=== PATIENT | male | born 1950 | race Caucasian/White ===

== ENCOUNTER → 2019-06-25 09:53 | Outpatient (CLI) | payer OTHER, SELFPAY ==
--- NOTE | 2019-06-25 10:00 | XR_ITS ---
PROCEDURE: XR KNEE LT 3V CLINICAL INDICATION: ARTHRITIS Pain, fall COMPARISON: No exams were available for comparison FINDINGS: No fracture or dislocation. No lytic or blastic change. There is normal mineralization. Status post total knee arthroplasty with good alignment of the prosthesis. Calcification is present along the lateral joint space. There also a small area of calcification along the medial joint space anteriorly.. Please correlate with old films to determine if these are new or old. There are no old images made available at this institution Other findings:None. IMPRESSION: Status post total knee arthroplasty with good alignment with periarticular calcification nonspecific. Loose bodies are considered. Dictated by: Ronni Hammond MD 06/25/2019 12:27 Electronically signed by Ronni Hammond MD in [place] 06/25/2019 12:27
--- NOTE | 2019-06-25 10:00 | XR_ITS ---
PROCEDURE: XR HIP LT 2-3V W/PELVIS CLINICAL INDICATION: ARTHRITIS Fall with injury and pain COMPARISON: No exams were available for comparison FINDINGS: No fracture or dislocation. There are mild osteoarthritic changes. No lytic or blastic change. IMPRESSION: Mild osteoarthritis otherwise negative Dictated by: Ronni Hammond MD 06/25/2019 12:23 Electronically signed by Ronni Hammond MD in [facility] 06/25/2019 12:23
--- NOTE | 2019-06-25 10:00 | XR_ITS ---
PROCEDURE: XR HIP RT 2-3V W/PELVIS CLINICAL INDICATION: ARTHRITIS Right hip pain COMPARISON: No exams were available for comparison FINDINGS: Mild osteoarthritic changes are present with some decrease in the joint space superiorly with small osteophytes. No fracture or dislocation. No lytic or blastic change. IMPRESSION: Mild osteoarthritis of the right hip Dictated by: Ronni Hammond MD 06/25/2019 12:21 Electronically signed by Ronni Hammond MD in [place] 06/25/2019 12:21
--- NOTE | 2019-06-25 10:00 | XR_ITS ---
PROCEDURE: XR KNEE RT 3V CLINICAL INDICATION: ARTHRITIS Pain, fall with injury and COMPARISON: No exams were available for comparison FINDINGS: There has been a prior total knee arthroplasty with good alignment of the prosthesis. There is some minimal periarticular calcification laterally and posteriorly. No acute fracture or dislocation. Other findings:None. IMPRESSION: Prior total knee arthroplasty with good alignment and no evidence of acute fracture Nonspecific periarticular calcification. Loose bodies would be a consideration. Please correlate with preoperative exam which is not available at this institution for comparison Dictated by: Ronni Hammond MD 06/25/2019 12:25 Electronically signed by Ronni Hammond MD in [facility] 06/25/2019 12:25
--- NOTE | 2019-06-25 10:00 | XR_ITS ---
PROCEDURE: XR LUMBAR SPINE 2-3V CLINICAL INDICATION: ARTHRITIS Low back pain, fall with injury and pain COMPARISON: No exams were available for comparison FINDINGS: There is normal alignment. No fracture or dislocation. Mild degenerative disc disease and facet arthritic change is present at L4-5 and L5-S1 IMPRESSION: Degenerative changes, no acute finding Dictated by: Ronni Hammond MD 06/25/2019 12:22 Electronically signed by Ronni Hammond MD in [place] 06/25/2019 12:22
== END ==
PROVIDERS: Visit Provider Orthopaedic Surgery
DX: M13.80 Other specified arthritis, unspecified site (principal)
CPT/HCPCS: 72100; 73502; 73562

== ENCOUNTER 2025-01-16 11:57 | Outpatient (CLI) | payer BC, SELFPAY ==
[2025-01-16 18:31] LABS: Basophils # 0.1 K/mm3 (0-0.2); Basophils % 0.6 % (0.1-2.0); Eosinophils # 0.3 Kmm3 (0.0-0.4); Eosinophils % 3.2 % (0.1-12.0); Hematocrit 44.4 % (42.0-52.0); Hemoglobin 14.7 g/dL (14.1-18.0); Immature Granulocytes # 0.04 10^3uL; Immature Granulocytes % 0.5 %; Lymphocytes # 2.7 K/mm3 (0.7-4.5); Lymphocytes % 35.1 % (10-50); Mean Corpuscular HGB Conc 33.1 g/dL (31.8-35.4); Mean Corpuscular Volume 93.7 fl (80-94); Mean Platelet Volume 10.5 fl (7.4-10.4); Monocytes # 0.5 K/mm3 (0.1-1.0); Monocytes % 6.3 % (1.7-9.3); Neutrophils # 4.2 K/mm3 (1.8-7.8); Neutrophils % 54.3 % (37.0-80.0); Nucleated Red Blood Cells # 0 10^3/uL; Nucleated Red Blood Cells % 0 %; Platelet Count 348 K/mm3 (142-424); Red Blood Count 4.74 M/mm3 (4.60-6.20); Red Cell Distribution Width 14.2 % (11.5-17.5); White Blood Count 7.8 K/mm3 (4.8-10.8)
[2025-01-16 20:16] LABS: Prostate Specific Ag Screen 1.1 ng/ml (0.0-4.0)
--- OUTSIDE RECORDS SUMMARY | 2025-01-17 23:20 | XMS_ITS | Clinical Summary ---
Author Organization [facility] Address [address] [place] [address] Phone Care Team Providers Care Quality Control Projectionist Name Role Phone Douglas Wood MD [phone] Conditions or Problems Problem Name Problem Code Onset Date Status Entry Date Provider Comment Standard Description Annotate DEGENERATIVE DISC DISEASE, CERVICAL SPINE 44599422 (SNOMED CT) Active 04/16 Jessica Gomez MA Degeneration of cervical intervertebral disc Medications Medication Instructions Start Date Stop Date Generic Name NDC Provider LIDODERM 5 % PTCH [facility] LIDOCAINE [phone] Douglas Wood MD OXYCODONE-DAWNA TAMINOPHEN 7.5-325 MG TABS [facility] OXYCODONE-ACETAMIN OPHEN [id number] Douglas Wood MD DEXILANT 60 MG CPDR [facility] DEXLANSOPRAZOLE [id number] Douglas Wood MD TOPAMAX 100 MG TABS [facility] TOPIRAMATE [phone] Douglas Wood MD BACTROBAN NASAL OINTMENT Apply 1/2 of the tube in one nostril then apply the other 1/2 into the other nostril. Press nostrils together & massage for 1 minute. 2 x a day for 7 days. MUPIROCIN CALCIUM OINT [phone] Douglas Wood MD NONE NONE Douglas Wood MD LIDODERM 5 % PTCH [facility] LIDOCAINE [phone] Hortensia Flores ONLINE PROJECT MANAGER OXYCODONE-DAWNA TAMINOPHEN 7.5-325 MG TABS [facility] OXYCODONE-ACETAMIN OPHEN [phone] Hortensia Flores NP DEXILANT 60 MG CPDR [facility] DEXLANSOPRAZOLE [phone] Hortensia Flores NP TOPAMAX 100 MG TABS [facility] TOPIRAMATE [phone] Hortensia Flores NP BACTROBAN NASAL OINTMENT Apply 1/2 of the tube in one nostril then apply the other 1/2 into the other nostril. Press nostrils together & massage for 1 minute. 2 x a day for 7 days. MUPIROCIN CALCIUM OINT [phone] Douglas Wood MD NONE NONE Jessica Gomez MA Medications Administered No information available. Allergies, Adverse Reactions, Alerts Allergy Name Reaction Description Start Date Severity Statu s Provider SULFA Critical Hortensia mario NP CONTRAST DYE ITCHING Critical Celia Gomez MA Results Date Name Value Unit Range Flag Description Lab Report: ABO GROUP & RH T YPE, ANTIBODY SCREEN ANTIBODY SCR Negative antibod y screen, serum RH TYPE Negative Rh antigen ABO BLD GRP A ABO blood group Plan of Care Type Date Detail Pending order X-ray Cervical A P & Lateral Pending order X-Ray Cervical F lexion/Extension Pending order X-Ray Cervical F lexion/Extension Pending order X-ray Cervical A P & Lateral Pending order X-ray Cervical A P & Lateral Pending order X-ray Cervical A P & Lateral Pending order EMG Bilateral Up pers Procedures No information available. Vital Signs Date Name Value Unit Description Height 71 [in_us] height E&M Weight Measured 222 [lb_av] weight E& M Weight Measured 222 [lb_av] weight E& M BMI (Body Mass Index) 32.21 kg/m2 Bod y Mass Index (Ratio) BP Diastolic 76 mm[Hg] blood pressu re, diastolic BP Systolic 132 mm[Hg] blood pressur e, systolic Immunizations No information available. Advance Directives No information available.
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
[2025-01-18 08:21] LABS: Testosterone,Total 164 ng/dL (264-916)
== END 2025-01-16 23:59 | disposition home or self-care (01) ==
LOC: LAB.DROPOF 01-17 23:19
PROVIDERS: PCP Family Medicine; Visit Provider Family Medicine
DX: C44.91 Basal cell carcinoma of skin, unspecified (principal); Z12.5 Encounter for screening for malignant neoplasm of prostate
CPT/HCPCS: 84403; 85025; G0103

== ENCOUNTER 2025-03-21 10:22 | Outpatient (CLI) | payer BC, SELFPAY ==
[2025-03-21 15:34] LABS: Alanine Aminotransferase 28 U/L (12-78); Albumin Level 4.1 g/dl (3.5-5.0); Albumin/Globulin Ratio 2.0 (1.1-1.8); Alkaline Phosphatase 76 U/L (38-126); Anion Gap 11.2 mEq/L (5-15); Aspartate Amino Transferase 30 U/L (17-59); Bilirubin,Total 0.6 mg/dl (0.2-1.3); Blood Urea Nitrogen 18 mg/dl (9-20); Calcium 9.5 mg/dl (8.4-10.2); Carbon Dioxide 21 mmol/L (22.0-30.0); Chloride 109 mmol/L (98-107); Creatinine,Serum 0.80 mg/dl (0.66-1.25); Estimated Glomerular Filt Rate 94 ml/min (>60); GFR (African American) 114 ML/MIN (>60); Globulin 2.1 g/dL (1.3-3.2); Glucose 86 mg/dl (74-100); Magnesium 2.1 mg/dl (1.6-2.3); Potassium 4.2 mmoL/L (3.5-5.1); Sodium 137 mmol/L (136-145); Total Protein,Serum 6.2 g/dl (6.3-8.2)
--- OUTSIDE RECORDS SUMMARY | 2025-03-25 10:25 | XMS_ITS | Clinical Summary ---
Author Organization [facility] Address [address] [place] [address] Phone Care Team Providers Care Medical Dosimetrist Name Role Phone Douglas Wood MD [phone] Conditions or Problems Problem Name Problem Code Onset Date Status Entry Date Provider Comment Standard Description Annotate DEGENERATIVE DISC DISEASE, CERVICAL SPINE 94012377 (SNOMED CT) Active 04/16 Jessica Gomez MA Degeneration of cervical intervertebral disc Medications Medication Instructions Start Date Stop Date Generic Name NDC Provider LIDODERM 5 % PTCH [facility] LIDOCAINE [phone] Douglas Wood MD OXYCODONE-DAWNA TAMINOPHEN 7.5-325 MG TABS [facility] OXYCODONE-ACETAMIN OPHEN [phone] Douglas Wood MD DEXILANT 60 MG CPDR [facility] DEXLANSOPRAZOLE [id number] Douglas Wood MD TOPAMAX 100 MG TABS [facility] TOPIRAMATE [phone] Douglas Wood MD BACTROBAN NASAL OINTMENT Apply 1/2 of the tube in one nostril then apply the other 1/2 into the other nostril. Press nostrils together & massage for 1 minute. 2 x a day for 7 days. MUPIROCIN CALCIUM OINT [phone] Douglas Wood MD NONE NONE Douglas Wood MD LIDODERM 5 % PTCH [facility] LIDOCAINE [phone] Hortensia Flores CEILING INSULATION BLOWER OXYCODONE-DAWNA TAMINOPHEN 7.5-325 MG TABS [facility] OXYCODONE-ACETAMIN OPHEN [id number] Hortensia Flores NP DEXILANT 60 MG CPDR [facility] DEXLANSOPRAZOLE [id number] Hortensia Flores NP TOPAMAX 100 MG TABS [facility] TOPIRAMATE [phone] Hortensia Flores NP BACTROBAN NASAL OINTMENT Apply 1/2 of the tube in one nostril then apply the other 1/2 into the other nostril. Press nostrils together & massage for 1 minute. 2 x a day for 7 days. MUPIROCIN CALCIUM OINT [phone] Douglas Wood MD NONE NONE Jessica Gomez [...]
--- OUTSIDE RECORDS SUMMARY | 2025-03-25 10:25 | XMS_ITS | Clinical Summary ---
Author Organization [facility] Address [address] [place] [id number] Care Team Providers Care Embedded Software Developer Name Role Phone Gregory Murphy MD Primary Care Provider + [phone] Douglas Wood MD Unavailable [phone] Allergies Active Allergy Reactions Criticality Noted Date Comments Iodinated Contrast Media Hives 10/07/2010 Oxymorphone Itching 10/07/2010 PILL FORM Sulfa (Sulfonamide Antibiotics) Itching 10/2010 Bupropion Hcl Itching 10/07/2010 Medications Dexlansoprazole (KAPIDEX) 60 mg PO CpDM Take 60 mg by mouth nightly bedtime. Active Zolpidem (AMBIEN CR) 12.5 mg PO TbMP Take 6.25 mg by mouth give at bedtime as needed. Active pravastatin (PRAVACHOL) 20 mg PO tablet Take 20 mg by mouth every evening. Active methocarbamol (ROBAXIN) 750 mg PO tablet Take 1-2 Tabs by mouth every 12 hours as needed (Spasms). 20 Tab 0 10/20/2010 Active Family History Medical History Relation Name Comments Heart Problems Mother CHF 2010 Anesthesia Complications Neg Hx Relation Name Status Comments Mother Social History Tobacco Use Types Packs/Day Years Used Date Smoking Tobacco: Former Cigarettes Q uit: 10/07/1972 Alcohol Use Standard Drinks/Week Comments No 0 (1 standard drink = 0.6 oz pur e alcohol) ?borderline 1972 Sex and Gender Information Value Date Recorded Sex Assigned at Not on file Legal Sex Male 5:16 PM EST Gender Identity Not on file Sexual Orientation Not on file Last Filed Vital Signs Vital Sign Reading Time Taken Comments Blood Pressure 121/78 10/20/2010 7:10 AM EDT Pulse 90 10/20/2010 7:10 AM EDT Temperature 36.4 C (97.5 F) 10/20/2010 7:10 AM EDT Respiratory Rate 18 10/20/2010 7:10 AM EDT Oxygen Saturation 96% 10/20/2010 7:10 AM EDT Inhaled Oxygen Concentration - - Weight 107.1 kg (236 lb 3 oz) 10/19/2010 12:25 P M EDT Height 177.8 cm (5' 10 ) 10/19/2010 12:25 PM EDT Body Mass Index 33.89 10/19/2010 12:25 PM EDT Plan of Treatment Health Maintenance Due Date Last Done Comments Cologuard 1950 Colonoscopy 1950 Colorectal Cancer Screening 1950 FIT 1950 Lipid Monitoring 1967 Tetanus Vaccination (Every 10 Years) 01/21/1968 Hepatitis C Virus (HCV) Screening 1971 Pneumococcal Vaccine: 50+ Years (1 of 1 - PCV) 000 Zoster-RZV(Shingrix) (1 of 2) 01/21/2000 Fall Risk Assessment 2015 COVID-19 Vaccine ( - 2023- season) 2024 Advance Care Planning 08/07/2024 Depression Screening 08/07/2024 RSV Vaccines (1 - 1-dose 75+ series) 2025 Influenza Vaccination (#1) 2025 Medical Devices Implanted Type Area Mill Tender Warm Up Device Identifier Shelf Expiration Date Model / Serial / Lot Screw 4.0 X 15mm Implanted:Qty: 6 on 10/19/2010 at [facility] OR Screw N/A: Spine Cervical * [employer] [id number] / / Infuse Bone Graft Xx Small - S1 Implanted:Qty: 1 on 10/19/2010 at [facility] OR N/A: Spine Cervical * [employer] 02/04/2011 [id number] / / [id number] Spacer Cornerstone Hsr [id number] - S1 Implanted:Qty: 2 on 10/19/2010 at [facility] OR N/A: Spine Cervical * [employer] [id number] / / [id number] Plate Cerv Ant Vision 37mm - S1 Implanted:Qty: 1 on 10/19/2010 at [facility] OR N/A: Spine Cervical * [employer] [id number] / / Insurance WORKERS COMPENSATION Advance Directives For more information, please contact: [phone] Documents on File Type Date Recorded 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 [address] Neurological Surgery 08/14/22
--- OUTSIDE RECORDS SUMMARY | 2025-03-25 10:25 | XMS_ITS | Clinical Summary ---
Author Organization [facility] Address [address] [place] [address] Phone Care Team Providers Care Spring Setter Name Role Phone Unavailable Primary Care Provider [...] (01/24/2019): R armpit. S/p excision ~2016 in [place]. Gastroesophageal reflux disease 01/24/2019 Insomnia, persistent 01/24/2019 [...] 12:50 PM EDT Office Visit [facility] [address] [facility] [address] [place] [id number] Inder Howell MD [address] [facility] [address] [place] [address] Health Maintenance Due Date Last [...] Vaccine ( - 2023-2 5 season) 2024 RSV or 60+ (1 - 1-dose 75+ series) 2025 Influenza Vaccine (#1) 2025 5 (Declined), 08/26/2014 (Declined) Hepatitis C Screening Completed [...] e Non-Reacti ve 01/24/2019 5:47 PM EDT [facility] Blood Venipuncture / Unknown 01/24/2019 11:12 AM EDT 01/24/2019 11:12 AM EDT us Alex Painting MD HEMATOLOGY ORDERABLES Final Result [facility] [address] [place] [address] , [place] [address] from Last 3 Months or Most Recently Relevant to Health Maintenance Insurance PPO 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
== END 2025-03-21 23:59 | disposition home or self-care (01) ==
LOC: LAB.DROPOF 03-25 10:23
PROVIDERS: PCP Family Medicine; Visit Provider Family Medicine
DX: M54.9 Dorsalgia, unspecified (principal); G89.29 Other chronic pain; R25.2 Cramp and spasm
CPT/HCPCS: 80053; 83735